=== PATIENT | female | born 1985 | race Caucasian/White ===

== ENCOUNTER 2017-06-22 10:05 | Emergency (ER) | payer BC ==
[~2017-06-22] VITALS: Ht 175.3 cm; Wt 48.0 kg
[2017-06-22 10:07] VITALS: BP 122/65; PULSE 85; RESP 18; TEMP 97.9; O2SAT 99
[2017-06-22] MEDS ORDERED: SODIUM CHLORIDE 0.9% FLUSH 10 ML FLUSH IV FLUSH PRN (10:30)
[2017-06-22] MEDS ORDERED: HYDR-3516 PO (10:35)
[2017-06-22] MEDS ORDERED: ORSYTAB PO (10:35)
[2017-06-22] MEDS ORDERED: OMEP40CA2 PO (10:35)
[2017-06-22 10:50] VITALS: O2SAT 100
[2017-06-22 10:51] VITALS: BP 122/72; PULSE 75; RESP 22; O2SAT 100
[2017-06-22 11:00] LABS: AUTOMATED NEUTROPHIL # 3.1 TH/MM3 (1.8-7.7); BASOPHIL # 0.1 TH/MM3 (0-0.2); EOSINOPHIL # 0.2 TH/MM3 (0-0.4); EOSINOPHIL % 3.1 % (0.0-4.0); HEMATOCRIT 41.5 % (35.0-46.0); HEMO FLAGS DIFF FINAL; LYMPH % 33.5 % (9.0-44.0); LYMPHOCYTE # 1.9 TH/MM3 (1.0-4.8); MEAN CELL VOLUME 91.7 FL (80.0-100.0); MEAN CORPUSCULAR HEMOGLOBIN 31.4 PG (27.0-34.0); MEAN CORPUSCULAR HGB CONC 34.3 % (32.0-36.0); MONO % 7.1 % (0.0-8.0); NEUT % 55.3 % (16.0-70.0); PLATELET COUNT 169 TH/MM3 (150-450); RED BLOOD COUNT 4.53 MIL/MM3 (4.00-5.30); RED CELL DISTRIBUTION WIDTH 12.4 % (11.6-17.2); WHITE BLOOD COUNT 5.6 TH/MM3 (4.0-11.0)
[2017-06-22 11:10] LABS: BACTERIA, URINE OCC /hpf; BLOOD, URINE LARGE (NEG); COMMENT (UR) CULTURE INDICATED; CULTURE IF INDICATED CULTURE INDICATED; GLUCOSE,URINE NEG (NEG); KETONE, URINE NEG (NEG); NITRITE,URINE NEG (NEG); PH, URINE 7.5 (5.0-8.5); SQUAMOUS EPITHELIAL CELL URINE 3 /hpf (0-5); URINE COLOR YELLOW (YELLW/STRAW)
[2017-06-22 11:21] LABS: ANION GAP 7 MEQ/L (5-15); AST (GOT) 25 U/L (15-37); BICARBONATE 26.4 MEQ/L (21.0-32.0); BLOOD UREA NITROGEN 8 MG/DL (7-18); CHLORIDE 104 MEQ/L (98-107); GLOMERULAR FILTRATION RATE 111 ML/MIN (>89); SODIUM (NA) 137 MEQ/L (136-145)
[2017-06-22 11:22] LABS: ALT (GPT) 46 U/L (10-53)
[2017-06-22 11:25] LABS: ALKALINE PHOSPHATASE 112 U/L (45-117); TOTAL BILIRUBIN ADULT 0.5 MG/DL (0.2-1.0)
[2017-06-22] MEDS ORDERED: IOHEXOL 350 MG/ML 10 ML VIAL (for RAD DIAG) IVCONTRAST ONE (11:37)
--- NOTE | 2017-06-22 11:42 | PD ---
HPI Chief Complaint: Abdominal Pain Time Seen by Provider: 10:18 Travel History International Travel<30 days: No Contact w/Intl Traveler<30days: No Traveled to known affect area: No History of Present Illness HPI This is a 31-year-old female who presents to the emergency department with right sided abdominal pain that's been going on for 5 days, constant, moderate severity, associated with nausea and 3 episodes of vomiting. She denies any fevers or chills. She denies any dysuria or vaginal discharge. She started to have vaginal bleeding this morning and is earlier than she expected her menstrual cycles she became concerned and came to the emergency department. She was seen earlier in the week at an outside emergency Department. She had an ultrasound performed and they told her there was something abnormal on her liver and they discharged with Lortab. Patient has never had pain like this before. PFSH Past Medical History Diminished Hearing: No GERD: Yes ?: Not LMP: 06/02/17 : 2 Para: 2 Past Surgical History Section: Yes (X 2) Gynecologic Surgery: Yes Other Surgery: Yes (CYST REMOVAL- OVARY) Social History Alcohol Use: No Tobacco Use: No Substance Use: No Allergies-Medications (Allergen,Severity, Reaction): Coded Allergies: No Known Allergies (Unverified , 06/22/17) Reported Meds & Prescriptions Reported Meds & Active Scripts Active Reported Orsythia (Levonorgestrel-Ethinyl Estradiol) 0.1-20 mg-mcg Tab 1 Tab PO DAILY Omeprazole 40 Mg Cap 40 Mg PO DAILY Hydrocodone-Acetaminophen 5-325 mg Tab 1 Tab PO Q4-6H PRN Review of Systems Except as stated in HPI: all other systems reviewed are Neg Physical Exam Narrative GENERAL:Well appearing, no acute distress SKIN: Focused skin assessment warm and dry. HEAD: Atraumatic. Normocephalic. EYES: Pupils equal and round. No injection or drainage. ENT: Moist mucous membranes NECK: Trachea midline. CARDIOVASCULAR: Regular rate and rhythm. No murmur appreciated. RESPIRATORY: Clear to auscultation. Breath sounds equal bilaterally. GASTROINTESTINAL: Abdomen soft, tender to palpation in the right upper and right lower quadrants with no rebound or guarding : Right CVA tenderness MUSCULOSKELETAL: No obvious deformities. NEUROLOGICAL: Awake and alert. No obvious cranial nerve deficits. Moving all extremities. PSYCHIATRIC: Appropriate mood and affect; insight and judgment normal. Data Data Last Documented VS Vital Signs Date Time Temp Pulse Resp B/P (MAP) Pulse Ox O2 Delivery O2 Flow Rate FiO2 06/22/17 10:51 75 22 122/72 (89) 100 Room Air 06/22/17 10:07 97.9 Orders Orders Complete Blood Count With Diff (06/22/17 10:25) Comprehensive Metabolic Panel (06/22/17 10:25) Lipase (06/22/17 10:25) Urinalysis - C+S If Indicated (06/22/17 10:25) Iv Access Insert/Monitor (06/22/17 10:25) Ecg Monitoring (06/22/17 10:25) Oximetry (06/22/17 10:25) Sodium Chloride 0.9% Flush (Ns Flush) (06/22/17 10:30) Ed Urine Pregnancytest Poc (06/22/17 10:25) Wet Prep Profile (06/22/17 10:25) Gc And Chlamydia Pcr (06/22/17 10:25) Ct Abd/Pel W Iv Contrast(Rout) (06/22/17 ) Urine Culture (06/22/17 10:44) [place], [place], Med Ea (06/22/17 11:11) Iohexol 350 Inj (Omnipaque 350 Inj) (06/22/17 11:37) Ketorolac Inj (Toradol Inj) (06/22/17 12:00) Labs Laboratory Tests Test 06/22/17 10:44 White Blood Count 5.6 TH/MM3 Red Blood Count 4.53 MIL/MM3 Hemoglobin 14.2 GM/DL Hematocrit 41.5 % Mean Corpuscular Volume 91.7 FL Mean Corpuscular Hemoglobin 31.4 PG Mean Corpuscular Hemoglobin Concent 34.3 % Red Cell Distribution Width 12.4 % Platelet Count 169 TH/MM3 Mean Platelet Volume 8.8 FL Neutrophils (%) (Auto) 55.3 % Lymphocytes (%) (Auto) 33.5 % Monocytes (%) (Auto) 7.1 % Eosinophils (%) (Auto) 3.1 % Basophils (%) (Auto) 1.0 % Neutrophils # (Auto) 3.1 TH/MM3 Lymphocytes # (Auto) 1.9 TH/MM3 Monocytes # (Auto) 0.4 TH/MM3 Eosinophils # (Auto) 0.2 TH/MM3 Basophils # (Auto) 0.1 TH/MM3 CBC Comment DIFF FINAL Differential Comment Urine Color YELLOW Urine Turbidity CLEAR Urine pH 7.5 Urine Specific [place] 1.008 Urine Protein TRACE mg/dL Urine Glucose (UA) NEG mg/dL Urine Ketones NEG mg/dL Urine Occult Blood LARGE Urine Nitrite NEG Urine Bilirubin NEG Urine Urobilinogen LESS THAN 2.0 MG/DL Urine Leukocyte Esterase TRACE Urine RBC /hpf Urine WBC 21 /hpf Urine Squamous Epithelial Cells 3 /hpf Urine Bacteria OCC /hpf Microscopic Urinalysis Comment CULTURE INDICATED Blood Urea Nitrogen 8 MG/DL Creatinine 0.62 MG/DL Random Glucose 83 MG/DL Total Protein 8.5 GM/DL Albumin 4.4 GM/DL Calcium Level 9.5 MG/DL Alkaline Phosphatase 112 U/L Aspartate Amino Transf (AST/SGOT) 25 U/L Alanine Aminotransferase (ALT/SGPT) 46 U/L Total Bilirubin 0.5 MG/DL Sodium Level 137 MEQ/L Potassium Level 4.0 MEQ/L Chloride Level 104 MEQ/L Carbon Dioxide Level 26.4 MEQ/L Anion Gap 7 MEQ/L Estimat Glomerular Filtration Rate 111 ML/MIN Lipase 133 U/L [facility] Medical Decision Making Medical Screen Exam Complete: Yes Emergency Medical Condition: Yes Interpretation(s) afebrile, no tachycardia, normotensive no leukocytosis Electrolytes are reassuring Lipase is normal Urinalysis demonstrates a large amount of blood and some white blood cells Last 24 hours Impressions Abdomen/Pelvis CT 06/22/17 0000 Signed Impressions: Service Date/Time: Thursday, June 22, 2017 11:26 - CONCLUSION: 1. Appendix not seen. No inflammatory changes right lower quadrant. 2. Enlarged heterogeneous uterus. Solomon Gonzalez MD Differential Diagnosis Pyelonephritis, cholelithiasis, cholecystitis, appendicitis, ovarian cyst, fibroids Narrative Course This is a 31-year-old female who presents to the emergency department with several days of right sided abdominal pain. She is well-appearing on exam. CT was obtained which demonstrates heterogenous enlarged uterus with no other surgical etiology of her symptoms. She does have some white blood cells in her urine which are likely secondary to the presence of blood but her symptoms are suggestive of pyelonephritis. Patient will be discharged on Keflex. She also was encouraged to follow-up with her occupational health professional as I suspect her pain is gynecologic in nature. Diagnosis Primary Impression: Abdominal pain Qualified Codes: R10.10 - Upper abdominal pain, unspecified Patient Instructions: General Instructions Additional Instructions: If you develop severe or worsening abdominal pain, fever>100.4, persistent vomiting or inability to eat or drink return to the emergency department immediately. Follow up with your primary care physician in 1-2 days for a check-up. Med/Other Pt SpecificInfo: Prescription(s) given Scripts Cephalexin (Keflex) 500 Mg Cap 500 MG PO Q12H for Infection for 7 Days, #14 CAP 0 Refills Prov: Cassidy Hurd MD 06/22/17 Naproxen (Naproxen) 375 Mg Tab 375 MG PO BID Y for PAIN SCALE 4 TO 10, #30 TAB 0 Refills Prov: Cassidy Hurd MD 06/22/17 Disposition: 01 DISCHARGE HOME Condition: Stable Cassidy Hurd MD Jun 22, 2017 11:42
--- NOTE | 2017-06-22 11:46 | RADRPT ---
EXAM DATE/TIME: 06/22/2017 11:26 [facility] COMPARISON: No previous studies available for comparison. INDICATIONS : Right side abdominal pain with nausea. IV CONTRAST: 95 cc Omnipaque 350 (iohexol) IV ORAL CONTRAST: No oral contrast ingested. RADIATION DOSE: 5.98 CTDIvol (mGy) MEDICAL HISTORY : Gastroesophageal reflux disease. Ovarian cyst SURGICAL HISTORY : section. ENCOUNTER: Initial ACUITY: 4 - 6 days PAIN SCALE: 7/10 LOCATION: Right abdomen. TECHNIQUE: Volumetric scanning of the abdomen and pelvis was performed. Using automated exposure control and ad justment of the mA and/or kV according to patient size, radiation dose was kept as low as reasonably achievable to obtain optimal diagnostic quality images. DICOM format image data is available electro nically for review and comparison. FINDINGS: LOWER LUNGS: The visualized lower lungs are clear. LIVER: Homogeneous density without lesion. There is no dilation of the biliary tree. No calcified gallston es. SPLEEN: Normal size without lesion. PANCREAS: Within normal limits. KIDNEYS: Normal in size and shape. There is no mass, stone or hydronephrosis. ADRENAL GLANDS: Within normal limits. VASCULAR: There is no aortic aneurysm. BOWEL/MESENTERY: The stomach, small bowel, and colon demonstrate no acute abnormality. There is no free intraperitone al air or fluid. Appendix not visualized. No inflammatory changes right lower quadrant. ABDOMINAL WALL: Within normal limits. RETROPERITONEUM: There is no lymphadenopathy. BLADDER: No wall thickening or mass. REPRODUCTIVE: Enlarged heterogeneous uterus.. INGUINAL: There is no lymphadenopathy or hernia. MUSCULOSKELETAL: Within normal limits for patient age. CONCLUSION: 1. Appendix not seen. No inflammatory changes right lower quadrant. 2. Enlarged heterogeneous uterus. Solomon Gonzalez MD on June 22, 2017 at 11:40 Board Certified Radiologist. This report was verified electronically.
[2017-06-22] MEDS ORDERED: KETOROLAC TROMETHAMINE 30 MG/ML (IVP) VIAL IV PUSH ONE (12:00)
[2017-06-22 12:25] VITALS: BP 104/59; PULSE 74; RESP 22; O2SAT 100
[2017-06-22] MEDS ORDERED: NAPR-855 PO (12:29)
[2017-06-22] MEDS ORDERED: CEPH-460 PO (12:29)
== END 2017-06-22 13:13 | disposition home or self-care (01) ==
LOC: NEPC 10:05
DX: R10.10 Upper abdominal pain, unspecified (principal); N85.2 Hypertrophy of uterus; B96.89 Other specified bacterial agents as the cause of diseases classified elsewhere; R11.2 Nausea with vomiting, unspecified; K21.9 Gastro-esophageal reflux disease without esophagitis; Z79.899 Other long term (current) drug therapy
CPT/HCPCS: 74177; 80053; 81001; 83690; 84703; 85025; 87086; 96374; 99285; J1885; Q9967